=== PATIENT | female | born 1975 | race Asian ===

== ENCOUNTER → 2024-04-06 | Outpatient (CLI) | payer BC, SELFPAY ==
[2024-04-06 08:40] LABS: Glucose Estimated Average 117 mg/dL (80-131); Hemoglobin A1C 5.7 % Hgb (4.8-6.0)
[2024-04-06 08:44] LABS: Alanine Aminotransferase 26 U/L (10-49); Albumin, Serum 4.4 gm/dL (3.5-5.0); Albumin/Globulin Ratio 1.5 (1.2-2.2); Alkaline Phosphatase 60 U/L (46-116); Anion Gap 7 (7-16); Aspartate Amino Transferase 20 U/L (0-34); BUN/Creatinine Ratio 17 Ratio (12-20); Bilirubin,Total 0.6 mg/dL (0.3-1.2); Blood Urea Nitrogen 12 mg/dL (9-23); Calcium 9.1 mg/dL (8.3-10.6); Calcium (Corrected) 9.1 mg/dL (8.5-10.1); Carbon Dioxide 28.6 mMol/L (20.0-31.0); Chloride 104 mMol/L (98-107); Cholesterol 197 mg/dL (132-200); Creatinine (Component) 0.7 mg/dL (0.6-1.3); Globulin 2.9 gm/dL (2.3-3.5); Glucose 96 mg/dL (74-106); HDL Cholesterol 65 mg/dL (40-60); LDL Cholesterol,Calculated 113 mg/dL (0-130); Magnesium 2.2 mg/dL (1.6-2.6); Osmolality,Calculated 279 (275-295); Potassium 4.2 mMol/L (3.4-5.1); Sodium 140 mMol/L (136-145); Thyroid Stimulating Hormone 0.95 uIU/mL (0.55-4.78); Total Protein 7.3 gm/dL (5.7-8.2); Triglycerides 95 mg/dL (30-150); eGFR > 60 See Note
[2024-04-06 08:45] LABS: Ferritin 198 ng/mL (7.3-270.7); T4 (Thyroxine) 11.5 mcg/dL (4.5-10.9)
[2024-04-06 08:50] LABS: Basophils # (Auto) 0.1 Thou/mm3 (0.0-0.2); Basophils % (Auto) 1 % (0-2.5); Eosinophils # (Auto) 0.2 Thou/mm3 (0.0-0.5); Eosinophils % (Auto) 2 % (0-10); Hematocrit 40.3 % (36.0-46.0); Immature Granulocytes % (Auto) 0 % (0-0); Immature Granulocytes Auto 0.03 Thou/mm3 (0.00-0.00); Lymphocytes # (Auto) 2.8 Thou/mm3 (1.0-4.8); Lymphocytes % (Auto) 35 % (10-50); Mean Corpuscular HGB Conc 32.3 g/dl (31.0-37.0); Mean Corpuscular Hemoglobin 28.9 pg (25.0-35.0); Mean Corpuscular Volume 90 fL (80-100); Monocytes # (Auto) 0.7 Thou/mm3 (0.0-0.8); Monocytes % (Auto) 9 % (0-12); Neutrophils # (Auto) 4.3 Thou/mm3 (1.8-7.7); Neutrophils % (Auto) 53 % (37-80); Nucleated Red Blood Cell % 0 /100 WBC (0); Platelet Count 278 Thou/mm3 (140-440); RDW Standard Deviation 44.5 fL (36.4-46.3)
== END | disposition home or self-care (01) ==
LOC: COPL 07:41
PROVIDERS: PCP Family Medicine; Referring Provider Nurse Practitioner Family; Visit Provider Nurse Practitioner Family
DX: R79.9 Abnormal finding of blood chemistry, unspecified (principal); I10 Essential (primary) hypertension; Z86.39 Personal history of other endocrine, nutritional and metabolic disease; Z82.49 Family history of ischemic heart disease and other diseases of the circulatory system
CPT/HCPCS: 36415; 80053; 80061; 82728; 83036; 83735; 84436; 84443; 85025

== ENCOUNTER → 2024-04-07 | Outpatient (CLI) | payer BC, SELFPAY ==
[2024-04-13 06:28] LABS: Fecal Globin Result DETECTED (NOT DETECTED)
== END | disposition home or self-care (01) ==
LOC: SLDO 15:25
PROVIDERS: PCP Nurse Practitioner Family; Referring Provider Nurse Practitioner Family; Visit Provider Nurse Practitioner Family
DX: Z12.11 Encounter for screening for malignant neoplasm of colon (principal)
CPT/HCPCS: 82274; G0328

== ENCOUNTER 2024-05-26 11:50 | Day surgery (SDC) | payer BC, SELFPAY ==
[2024-05-25 11:59] LABS: HCG Qualitative,Urine Negative
[2024-05-26] VITALS (12 sets, daily range): BP systolic 110–149; BP diastolic 75–96; PULSE 71–94; RESP 12–23; TEMP 36.8–37.2; O2SAT 96–100; BMI 41.5
[2024-05-26] MEDS: SODIUM CHLORIDE 0.9% 500 ML 500 ML 20 ML IV (14:02)
[2024-05-26] MEDS: DiphenhydrAMINE INJ 50 MG/ML VIAL 25 MG IV (14:06)
[2024-05-26] MEDS: fentaNYL CIT INJ 50 mCg/ML AMP 2ML IV (14:13)
[2024-05-26] MEDS: MIDAZOLAM INJ 1 MG/ML VIAL 2 ML 2 MG IV (14:19)
--- NOTE | 2024-05-26 15:40 | SUR.PHASEII ---
pt stayed in recovery a little longer than expected. pt c/o abdominal pain and unable to pass gas while resting in bed. pt abdomen was flat and soft, no distention noted. pt was repositioned in bed and pt stated it was not helping. pt was assisted to the rest room and pt was able to pass flatulence and eructation. pt tolerated a soda well and was able to pass more gas after a couple of sips. pt complained of mild cramping and feeling like passing more gas when ambulating. pt was assisted with ambulation and was able to feel more comfortable and decrease cramping. pt vocalized she was comfortable enough to go home and the pain was minimal. pt educated to call Dr. coy office if pain worsens pt and boyfriend stated they will if it becomes more painful but for now its mild.
== END 2024-05-26 15:35 | disposition home or self-care (01) ==
PROVIDERS: PCP Family Medicine; Referring Provider Specialist; Visit Provider Specialist
PROC: 0DBE8ZX Excision of Large Intestine, Via Natural or Artificial Opening Endoscopic, Diagnostic (ICD-10-PCS; CPT 45380; principal; 2024-05-26 12:15)
DX: D12.5 Benign neoplasm of sigmoid colon (principal); K64.9 Unspecified hemorrhoids; K57.31 Diverticulosis of large intestine without perforation or abscess with bleeding
CPT/HCPCS: 45385; 81025; J1200; J2250; J3010; J7040